=== PATIENT | male | born 1955 | race Caucasian/White ===

== ENCOUNTER 2017-08-26 07:46 | Outpatient (CLI) | payer OTHER ==
--- NOTE | 2017-08-26 10:14 | MRI ---
LUMBAR SPINE MRI NONCONTRAST: CLINICAL HISTORY: Lumbar radiculopathy. Spinal stenosis of the lumbar region with neurogenic pain. COMPARISON: 11/25/2016 FINDINGS: Vertebral body height and alignment of the lumbar spine is maintained. Disk space height is preserve d and maintained. Appropriate T2 signal. The conus medullaris terminates at the L1 level. There is congenital AP diameter narrowing of the vertebral canal on the basis of shortened pedicles. There i s prominence of epidural fat also present within the vertebral canal. L5-S1: Broad-based disk bulge is present with mild effacement of the ventral aspect of the terminal thecal sac. There is mild bilateral neural foraminal narrowing. L4-L5: Concentric disk bulge with mild to moderate central canal stenosis and mild to moderate bilat eral neural foraminal narrowing. L3-L4: There is moderate central canal stenosis. Mild bilateral neural foraminal narrowing is prese nt with a broad-based, concentric disk bulge superimposed upon osteophyte ridge. L2-L3: There is no high-grade compromise of the central canal. There is mild bilateral neural carroll inal narrowing, more pronounced on the right, with evidence of an asymmetric right disk bulge. L1-L2: No significant compromise of the central canal or neural foramina. There is multilevel moderate bilateral degenerative facet hypertrophy. IMPRESSION: Multilevel degenerative change of the lumbar spine, superimposed upon a congenitally narrowed anterio r-posterior diameter of the vertebral canal, as well as prominence of epidural fat at the mid to lowe r lumbar spine. No significant interval detrimental change from prior exam. POS: [facility]A
== END 2017-08-26 07:47 | disposition home or self-care (01) ==
LOC: TBSIIMAG 07:46
PROVIDERS: ATTEND Anesthesiology Pain Medicine
DX: M48.062 Spinal stenosis, lumbar region with neurogenic claudication (principal); M47.896 Other spondylosis, lumbar region
CPT/HCPCS: 72148

== ENCOUNTER 2017-09-08 08:33 | Outpatient (CLI) | payer OTHER ==
[2017-09-08] MEDS ORDERED: Iopamidol 370 76% 100 ML VIAL ONE (09:00)
[2017-09-08 10:13] LABS: Estimated GFR-MDRD - POC Greater than 90
--- NOTE | 2017-09-08 12:59 | CT ---
CT ANGIOGRAM ABDOMEN CT ANGIOGRAM PELVIS CT ANGIOGRAM RUNOFF TO THE FEET: HISTORY: Atherosclerosis of [place] arteries of both lower extremities. COMPARISON: None. TECHNIQUE: CT angiogram of the abdomen and pelvis with runoff to the feet was performed after the intravenous ad ministration of contrast. Three-D rendering is provided. FINDINGS: Dense mitral annular calcifications are present. No pericardial effusion. Lung bases are clear. The spleen and pancreas are unremarkable. Prior cholecystectomy. No arterial enhancing liver mass. Adrenal glands are unremarkable. No hydronephrosis. There is focal abnormal asymmetric wall thickening of the left lateral urinary bladder series 5 image 200, series 604 image 92. Further investigation with cystoscopy is warranted. There are no dilated loops of large or small bowel. Mild diverticular disease of the sigmoid colon w ithout active current inflammation. The appendix has an appendicolith at its tip. No periappendiceal inflammation. There is a fat-containing left-sided direct inguinal hernia and a right-sided direct inguinal hernia. Lumbar spine alignment is normal. Vessels: There is no aneurysmal dilatation of the abdominal aorta. Celiac trunk is patent. Superior mesenter ic artery is patent. Single bilateral patent renal arteries. Superior mesenteric artery is patent. Right Side: The common iliac artery is patent with moderate plaque. Moderate plaque of the internal and external iliac arteries. Moderate plaque of the right common femoral artery. There is extensive plaque of t he femoral artery just beyond the deep femoral artery takeoff. There is approximately 60% narrowing for a length of 2.3 cm due to a combination of soft and calcific plaque. There is very minimal flow within the right femoral artery. There is a high-grade stenosis of the right femoral artery, 60-75%, for a length of 1.1 cm. Just a small trickle of flow within the femoral artery. There is a complet e occlusion of the right femoral artery just before returning to the popliteal artery for a length of 2 cm due to calcific and soft plaque. The popliteal artery is patent. There is flow in the trifurcation to the foot which is from reconsti tution from the deep femoral artery branch. Left Side: Common iliac and internal iliac arteries are patent. There is plaque of the femoral artery and commo n femoral artery. There is extensive atherosclerotic plaque of the femoral artery. There is minimal flow within the femoral artery due to extensive narrowing. There is multifocal 50-75% stenosis of t he femoral artery. The left popliteal artery has decreased attenuation relative to the right poplite al artery. There is flow within the trifurcation to the feet. IMPRESSION: 1. Extensive atherosclerotic plaque of the aortoiliac system with multifocal, high-grade, and comple te stenoses/thromboses of the right femoral system. 2. Extensive multifocal narrowing of the left femoral artery and popliteal artery with slow flow. 3. Interventional angiogram recommended. 4. Flow to the feet bilaterally through the trifurcation predominantly due to collateralization of t he distal popliteal arteries and the deep femoral arteries bilaterally. POS: [facility]
== END 2017-09-08 08:34 | disposition home or self-care (01) ==
LOC: SCSCT 08:33
PROVIDERS: ATTEND Thoracic Surgery (Cardiothoracic Vascular Surgery)
DX: I70.213 Atherosclerosis of native arteries of extremities with intermittent claudication, bilateral legs (principal)
CPT/HCPCS: 75635; 82565

== ENCOUNTER → 2017-10-21 | Day surgery (SDC) | payer OTHER ==
[2017-10-14 14:49] VITALS: BMI 35.5
--- NOTE | 2017-10-20 16:35 | HP ---
HISTORY OF PRESENT ILLNESS: Mr. Wells is a 62-year-old gentleman who presents for evaluation of most ly left side lower back pain that centers on the SI joints that he has had for roughly 10 years. He also has some scattered referred or radicular pains in the anterior left thigh and posterior right ca lf. He has a new MRI performed at [place] that reveals profound stenosis between L3 and L5 that a ppears to be symptomatic. He has had injections with Dr. Shore over the last few months and wh ile they have helped, they are decreasing in efficacy and hopes to move forward with surgery. PAST MEDICAL HISTORY: Hypercholesterolemia and hypertension. MEDICATIONS: Metoprolol and simvastatin. PAST SURGICAL HISTORY: Hemorrhoidectomy and cholecystectomy. PHYSICAL EXAMINATION: NEUROLOGIC: The patient is alert and oriented x3. Gait is ____ pain that he feels. Mild tenderness in the left lower back centering over the SI joint. Negative straight leg raise. ASSESSMENT: Lumbar stenosis and neurogenic claudication. PLAN: Dr. Rees met with the patient, reviewed imaging and advocated for L3 through L5 decompression . He explained to the patient the risks, benefits and alternatives of the procedure. The patient ex pressed understanding and would like to move forward with surgery as discussed. I do believe the tamara garcía is mentally competent and capable of making medical decisions for himself and we will move forwa rd with surgery as planned.
[~2017-10-21] MED LIST: Bupivacaine HCl 0.5%/Epinephrine 1:200,000/PF 30 ml Vial ONE; CEFAZOLIN/Water 2 GM/20 ML SYRINGE ONE; Cephalexin 250 MG CAP PO SCH; Dexamethasone 20 MG/5 ML VIAL ONE; Fentanyl 100 MCG/2 ML VIAL ONE; Glycopyrrolate 0.2 MG/ML 5 ML SYRINGE ONE; HYDROcodone/Acetaminophen 5/325 mg Tablet ONE; Ketorolac Tromethamine 30 MG/ML VIAL ONE; Lidocaine 1% PF 5 ML VIAL ONE; Ondansetron HCl/PF 4 MG/2 ML Vial ONE; PHENYLEPHRINE-NS 100 MCG/ML 10 ML SYRINGE ONE; PROPOFOL 200 MG/20 ML VIAL ONE; Thrombin 5000 UNITS/5 ML VIAL ONE; Vecuronium 10 MG VIAL ONE
--- NOTE | 2017-10-21 10:22 | OP ---
DATE OF SERVICE: 10/21/2017 SURGEON: Roel Rees M.D. DRAW OPERATOR: Ponce Newman PA-C. INDICATION: Pain. DIAGNOSIS: Lumbar stenosis. PROCEDURE PERFORMED: L3 through L5 lumbar decompression. ANESTHESIA: General. TECHNIQUE: The patient was brought into the operating room and placed under general anesthesia. He was flipped from a supine to a prone position on the operating room table. A linear incision was karma nned spanning L3-L5. After prepping and draping and after an appropriate operative pause, the incisi on was created. The soft tissues were swept away from midline. Self-retaining retractors were place d in the wound for optimal exposure. After confirming the appropriate level with C-arm fluoroscopy, an Adson rongeur was used to remove the spinous process of L4, the inferior aspect of L3 and the supe rior aspect of L5. A high-speed cutting drill bit as well as 2, 3 and 4-mm Kerrisons were then used to perform a laminectomy and extend the laminectomy laterally in order to decompress the L3-L4, and L 4-L5 segments. In addition to removing ligament and bony encroachment by the facet joints, there was a substantial degree of epidural lipomatosis present which was also carefully removed. At the compl etion of the procedure, the L3 through L5 lumbar segments were decompressed. The wound was irrigated . Hemostasis was maintained throughout. The wound was then closed in anatomic layers and a pressure dressing was applied. There were no known procedural complications.
== END ==
LOC: SDC 06:39
PROVIDERS: ATTEND Neurological Surgery
PROC: 01NB0ZZ Release Lumbar Nerve, Open Approach (ICD-10-PCS; principal; 2017-10-21)
DX: M48.062 Spinal stenosis, lumbar region with neurogenic claudication (principal); E78.00 Pure hypercholesterolemia, unspecified; I10 Essential (primary) hypertension; Z79.899 Other long term (current) drug therapy
CPT/HCPCS: 76001; 93005; 93010; 96374; 96375; J0670; J1100; J1885; J2001; J2405; J2704; J3010

== ENCOUNTER 2018-02-21 11:43 | Inpatient (IN) | payer OTHER ==
[2018-02-21 12:19] LABS: #Basophils 0.1 thou/uL (0.0-0.2); #Eosinphils 0.3 thou/uL (0.0-0.7); #Lymphocytes 2.4 thou/uL (1.20-3.40); #Monocytes 1.2 thou/uL (0.11-0.59); #Neutrophils 5.7 thou/uL (1.40-6.50); %Basophils 0.9 % (0.0-1.0); %Eosinophils 3.1 % (0.0-10.0); %Lymphocytes 24.6 % (21.0-51.0); %Monocytes 12.4 % (0.0-10.0); %Neutrophils 58.9 % (42.0-75.0); Hemoglobin 14.6 g/dL (14.0-18.0); Mean Corpuscular Hemoglobin 30.7 pg (27.0-31.0); Mean Corpuscular Volume 90.4 fL (78.0-98.0); Mean Platelet Volume 10.7 fL (7.4-10.4); Platelet Count 249 thou/uL (130-400); RBC Distribution Width 12.1 % (11.5-14.5); Red Blood Cell (RBC) Count 4.76 mill/uL (4.70-6.10); White Blood Cell (WBC) Count 9.6 thou/uL (4.8-10.8)
[2018-02-21 12:34] LABS: ALT (SGPT) 26 U/L (8-55); AST (SGOT) 21 U/L (5-34); Albumin 4.2 g/dL (3.4-4.8); Alkaline Phosphatase 87 U/L (40-150); Anion Gap 12 mmol/L (10-20); BUN (Urea Nitrogen) 11 mg/dL (8.4-25.7); Bilirubin, Total 0.6 mg/dL (0.2-1.2); Calc. Creatinine Clearance 0 mL/min (70-130); Calcium 9.4 mg/dL (7.8-10.44); Carbon Dioxide 24 mmol/L (23-31); Chloride 105 mmol/L (98-107); Estimated GFR-MDRD 74; Globulin 3.1 g/dL (2.4-3.5); Glucose 145 mg/dL (80-115); Potassium 4.2 mmol/L (3.5-5.1); Protein, Total 7.3 g/dL (5.8-8.1); Sodium 137 mmol/L (136-145)
[2018-02-21] MEDS ORDERED: Vancomycin HCl 1.75 GM in Sodium Chloride 0.9% 500 ML IVPB SCH (13:00)
--- NOTE | 2018-02-21 13:05 | RAD ---
RIGHT FOOT THREE VIEWS: INDICATIONS: History of a bug bite to the right foot with right foot swelling. FINDINGS: There is prominent soft tissue swelling of the right small digit. No destructive osteolysis is seen to suggest the presence of osteomyelitis. No radiopaque foreign body is noted. There is a bifid fib eric and great toe sesamoid. Lisfranc alignment is preserved. IMPRESSION: Soft tissue swelling of the right foot. No acute osseous abnormality. POS: [facility]
[2018-02-21] MEDS ORDERED: Piperacillin/Tazobactam 3.375 GM VIAL ONE (14:00)
[2018-02-21] MEDS ORDERED: Adacel (T-DAP) 0.5 ML SYRINGE ONE (14:03)
[2018-02-21] MEDS ORDERED: VANC AND ABX IVPB PRN (14:33)
[2018-02-21] MEDS ORDERED: Ondansetron PF 4 MG/2 ML Vial IVP PRN (14:34)
[2018-02-21] MEDS ORDERED: Senokot S 8.6-50 MG TAB PO PRN (14:34)
[2018-02-21] MEDS ORDERED: Vancomycin HCl 1 GM in Premix Bag 1 BAG IVPB SCH (14:45)
[2018-02-21 15:10] VITALS: BMI 37.0
[2018-02-21] MEDS ORDERED: Morphine 2 MG/ML SYRINGE SLOW IVP PRN (15:34)
[2018-02-21] MEDS ORDERED: Acetaminophen 325 MG TAB PO PRN (16:57)
[2018-02-21] MEDS: Acetaminophen/Codeine 30-300mg Tablet PO PRN ×2 (17:17→21:11)
[2018-02-21] MEDS: Gabapentin 300 MG CAP PO SCH (20:03)
[2018-02-21] MEDS: Metoprolol Tartrate 100 MG TAB PO SCH (20:07)
[2018-02-21] MEDS: Simvastatin 40 MG TAB PO SCH (20:07)
[2018-02-21] MEDS: Piperacillin/Tazobactam 4.5 GM in Sodium Chloride 0.9% 100 ML IVPB SCH (21:04)
[2018-02-22] MEDS: Vancomycin HCl 1.75 GM in Sodium Chloride 0.9% 500 ML IVPB SCH ×2 (03:06→14:53)
[2018-02-22] MEDS: Acetaminophen/Codeine 30-300mg Tablet PO PRN ×5 (03:53→21:55)
[2018-02-22 05:39] LABS: #Basophils 0.1 thou/uL (0.0-0.2); #Eosinphils 0.3 thou/uL (0.0-0.7); #Lymphocytes 2.2 thou/uL (1.20-3.40); #Monocytes 1.2 thou/uL (0.11-0.59); #Neutrophils 4.3 thou/uL (1.40-6.50); %Eosinophils 4.1 % (0.0-10.0); %Lymphocytes 27.1 % (21.0-51.0); %Monocytes 14.9 % (0.0-10.0); %Neutrophils 52.9 % (42.0-75.0); Hemoglobin 13.4 g/dL (14.0-18.0); Mean Corpuscular HGB CONC 32.2 g/dL (32.0-36.0); Mean Corpuscular Hemoglobin 29.4 pg (27.0-31.0); Mean Corpuscular Volume 91.2 fL (78.0-98.0); Mean Platelet Volume 10.8 fL (7.4-10.4); Platelet Count 244 thou/uL (130-400); RBC Distribution Width 12.2 % (11.5-14.5); Red Blood Cell (RBC) Count 4.58 mill/uL (4.70-6.10); White Blood Cell (WBC) Count 8.2 thou/uL (4.8-10.8)
[2018-02-22] MEDS: Piperacillin/Tazobactam 4.5 GM in Sodium Chloride 0.9% 100 ML IVPB SCH ×2 (05:50→13:03)
[2018-02-22 06:02] LABS: Anion Gap 14 mmol/L (10-20); BUN (Urea Nitrogen) 15 mg/dL (8.4-25.7); Calc. Creatinine Clearance 119 mL/min (70-130); Calcium 8.9 mg/dL (7.8-10.44); Carbon Dioxide 23 mmol/L (23-31); Chloride 108 mmol/L (98-107); Estimated GFR-MDRD 71; Glucose 110 mg/dL (80-115); Potassium 4.5 mmol/L (3.5-5.1); Sodium 140 mmol/L (136-145)
--- NOTE | 2018-02-22 07:50 | HP ---
PRIMARY CARE PROVIDER: Roel Carpenter MD CHIEF COMPLAINT: Right foot swelling. HISTORY OF PRESENT ILLNESS: Mr. Wells is a pleasant 62-year-old gentleman who was seen at [facility] on February 21, 2018. Four days ago, he woke up around 3:30 a.m. to let the dogs out. Around 5 a.m., he noticed that he had pain in his right foot and woke his up. He thinks he has been bitten by an insect. That time, he was noted to have a "blood blister" over his right foot. He popped it with some blood and pus coming out. Since then, he has had progressively worsening redness and pain of the right foot. He describes the pain as dull, nonradiating, 6/10 at its worst, worse with walking. He reports feeling warm. He reports nausea. He was started on Bactrim 2 days ago at an urgent care clinic. He reports that the Bactrim did not help. He came to the emergency room today because of ongoing redness and pain on his right foot. REVIEW OF SYSTEMS: All other systems reviewed and found to be negative. PAST MEDICAL HISTORY: 1. 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 2. Dyslipidemia. 3. Hypertension. 4. Peripheral vascular disease. PAST SURGICAL HISTORY: 1. Hemorrhoidectomy. 2. Back surgery. 3. Cholecystectomy. SOCIAL HISTORY: The patient is an ex-smoker. He reports alcohol use occasionally. He denies recreational drug use. FAMILY HISTORY: No family history of coronary artery disease. ALLERGIES: NO KNOWN DRUG ALLERGIES. CURRENT MEDICATIONS: 1. Metoprolol tartrate 100 mg daily. 2. Simvastatin 40 mg daily. 3. Colestipol 1 g daily. 4. Gabapentin 300 mg 2 times a day. PHYSICAL EXAMINATION: GENERAL: Mr. Wells is awake and alert, not in acute distress. He is obese. VITAL SIGNS: He is afebrile. Blood pressure 122/79, pulse 71, respiratory rate 16, and oxygen saturation 97% on room air. EYES: No scleral icterus. No conjunctival pallor. ENT: Moist mucosal membranes. No oropharyngeal erythema or exudates. NECK: Supple, nontender. Trachea is midline. RESPIRATORY: Accessory muscles of breathing are not active. Chest wall movements are symmetric bilaterally. Lungs are clear to auscultation without wheeze, rhonchi, or crepitations. CARDIOVASCULAR: S1 and S2 are heard, regular. Peripheral pulses palpable. No carotid bruit. No pericardial rub. ABDOMEN: Soft, nontender. Bowel sounds heard. NEUROLOGIC: Cranial nerves 2 through 12 intact. Deep tendon reflexes 2+. MUSCULOSKELETAL: Power is 5/5 in all 4 extremities. SKIN: The dorsum of the right foot is erythematous, mildly tender. No crepitus. There is also a punctate opening. LYMPHATICS: No lymphadenopathy. PSYCHIATRIC: Normal mood, normal affect. The patient is oriented to person, place, and time. LABS AND INVESTIGATIONS: Mr. Wells's labs and investigations are reviewed. He had x-rays of the right foot, which shows soft tissue swelling and no acute osseous abnormality. He has unremarkable CBC, unremarkable comprehensive metabolic profile, and elevated C-reactive protein of 2.52. ASSESSMENT AND PLAN: Mr. Wells is a pleasant 62-year-old gentleman who was seen at [facility] on February 21, 2018. His problem list includes: 1. Cellulitis: Mr. Wells is presenting with cellulitis of the right foot. He has failed outpatient antibiotic therapy and will be admitted to the hospital for further management with intravenous antibiotics. He has already received intravenous vancomycin and Zosyn, which I will continue. Infectious Disease Service is also being consulted for opinion and help with management. 2. Hypertension: We will resume the patient's home medications once clarified, monitor vital signs and titrate antihypertensives as needed. 3. Dyslipidemia: We will continue statin. 4. Peripheral vascular disease, appears to be stable. Many thanks for allowing me to participate in your patient's care. Please feel free to contact me with any questions or concerns. LEVEL OF RISK: Moderate. LEVEL OF COMPLEXITY: Moderate. Job ID: [id number]
[2018-02-22] MEDS: Metoprolol Tartrate 100 MG TAB PO SCH ×2 (08:09→20:30)
[2018-02-22] MEDS: Gabapentin 300 MG CAP PO SCH ×2 (08:10→20:30)
[2018-02-22] MEDS: Enoxaparin Sodium 40 MG/0.4 ML SYRINGE SC SCH (08:10)
[2018-02-22] MEDS: Cefepime 1 GM in Sodium Chloride 0.9% 100 ML IVPB SCH ×2 (14:18→21:52)
--- NOTE | 2018-02-22 14:21 | PDOC.PN ---
- Subjective Encounter Start Date: 02/22/18 Encounter Start Time: 14:20 Pt seen for followup re: right foot cellulitis. Denies chest pain, shortness of breath, fevers or chills. - Objective MAR Reviewed: Yes Vital Signs & Weight: Vital Signs (12 hours) Temp Pulse Resp BP Pulse Ox 02/22/18 11:00 98.0 F 77 18 99/62 97 02/22/18 08:00 97 02/22/18 07:58 98.0 F 77 18 107/72 97 02/22/18 03:54 98.1 F 80 18 107/70 94 L Weight Weight 258 lb 8 oz I&O: 02/21/18 02/22/18 02/23/18 06:59 06:59 06:59 Intake Total 1790 240 Balance 1790 240 Result Diagrams: 02/22/18 04:20 02/22/18 04:20 Additional Labs: Labs reviewed by me Phys Exam - Physical Examination Obese HEENT: moist MMs, sclera anicteric, oral pharynx no lesions, 2+ tonsils Neck: no nodes, no JVD, supple, full ROM Respiratory: no wheezing, no rales, no rhonchi, clear to auscultation bilateral Cardiovascular: RRR, no rub S1, S2 Gastrointestinal: soft, non-tender, no distention, positive bowel sounds Neurological: moves all 4 limbs Psychiatric: normal affect, A&O x 3 Deviation from normal: right foot cellulitis Dx/Plan (1) Cellulitis of right foot Code(s): L03.115 - CELLULITIS OF RIGHT LOWER LIMB Status: Acute Comment: continue IV cefepime and vancomycin (2) HTN (hypertension) Code(s): I10 - ESSENTIAL (PRIMARY) HYPERTENSION Status: Chronic Comment: controlled (3) Dyslipidemia Code(s): E78.5 - HYPERLIPIDEMIA, UNSPECIFIED Status: Chronic Comment: continue statin (4) Peripheral neuropathy Code(s): G62.9 - POLYNEUROPATHY, UNSPECIFIED Status: Chronic Comment: continue gabapentin - Plan * . Review of Systems - Review of Systems Constitutional: negative: fever, chills, sweats, weakness, malaise Respiratory: negative: Cough, Shortness of Breath, SOB with Excertion, Pleuritic Pain, Wheezing Cardiovascular: negative: chest pain, palpitations, orthopnea, paroxysmal nocturnal dyspnea, edema, light headedness Gastrointestinal: negative: Nausea, Vomiting, Abdominal Pain, Diarrhea, Constipation, Melena, Hematochezia Musculoskeletal: Foot Pain. negative: Neck Pain, Shoulder Pain, Arm Pain, Back Pain, Hand Pain, Leg Pain Skin: Rash. negative: Lesions, Cole, Bruising - Medications/Allergies Allergies/Adverse Reactions: Allergies Allergy/AdvReac Type Severity Reaction Status Date / Time No Known Allergies Allergy Verified 10/14/17 14:49 Medications: Current Medications Acetaminophen (Tylenol) 650 mg PO Q6H PRN PRN Reason: Pain Last Admin: 02/22/18 10:20 Dose: 650 mg Acetaminophen/Codeine Phosphate (Tylenol #3) 1 tab PO Q4H PRN PRN Reason: Moderate Pain (4-6) Last Admin: 02/22/18 13:03 Dose: 1 tab Enoxaparin Sodium (Lovenox) 40 mg SC 0900 [facility] Last Admin: 02/22/18 08:10 Dose: 40 mg Gabapentin (Neurontin) 300 mg PO BID [facility] Last Admin: 02/22/18 08:10 Dose: 300 mg Vancomycin HCl 1.75 gm/ Sodium (Chloride) 500 mls @ 250 mls/hr IVPB 0300,1500 [facility] Last Admin: 02/22/18 03:06 Dose: 500 mls Cefepime HCl 1 gm/ Sodium (Chloride) 100 mls @ 200 mls/hr IVPB Q8HR [facility] Metoprolol Tartrate (Lopressor) 100 mg PO BID [facility] Last Admin: 02/22/18 08:09 Dose: 100 mg Miscellaneous Medication (Pharmacy To Dose) 1 each IVPB DAILYPRN PRN PRN Reason: LABS Ondansetron HCl (Zofran) 4 mg IVP Q6H PRN PRN Reason: Nausea/Vomiting Senna/Docusate Sodium (Senokot S) 2 tab PO BID PRN PRN Reason: Constipation Simvastatin (Zocor) 40 mg PO HS [facility] Last Admin: 02/21/18 20:07 Dose: Not Given
--- NOTE | 2018-02-22 16:44 | CON ---
DATE OF CONSULTATION: 02/22/2018 REASON FOR CONSULTATION: Right lateral forefoot inflammatory process. HISTORY OF PRESENT ILLNESS: A 62-year-old, history of peripheral neuropathy, dyslipidemia, hypertension, and PVD, who developed inflammatory process in the dorsal aspect of the right forefoot 4 days before admission. He is not sure he saw an insect at the site, but he developed this immediately after returning from a walk outside his house in the yard. There was what he describes as a "blood blister. " He did use an instrument to pop this blister and some pus and blood coming out. Since then, inflammatory process has worsened, despite oral Bactrim. PAST MEDICAL HISTORY: Neuropathy, dyslipidemia, hypertension, and PVD. PAST SURGICAL HISTORY: Hemorrhoidectomy, back surgery with laminectomy, and cholecystectomy. SOCIAL HISTORY: Former smoker. [place] other drug use. . FAMILY HISTORY: Noncontributory. ALLERGIES: NONE. CURRENT MEDICATIONS: 1. Tylenol. 2. Lovenox. 3. Neurontin. 4. Lopressor. 5. Zosyn. 6. Senokot. 7. Vancomycin. PHYSICAL EXAMINATION: VITAL SIGNS: T-max 98, blood pressure 107/72, pulse 77, respirations 18, and O2 saturation 97%. SKIN: Shows an area of erythema in the right distal forefoot dorsal aspect extending towards the midfoot and hindfoot regions at the intersection between the fifth toe and the metatarsal. There is what appears to be a pustule with slight bulging of the skin at the site and some yellow discoloration under it. LYMPHATICS: No lymphadenopathy. HEENT: Ocular movements conjugate. Oral cavity is normal. NECK: Supple. No jugular venous distention. LUNGS: Symmetric. Clear breath sounds. HEART: S1 and S2. Regular rate. No S3 or S4. ABDOMEN: Soft, not distended or tender. Pulses are excellent in the dorsalis pedis. NEURO: Nonfocal including cognitive function. LABORATORY DATA: White cell count 9.6 and 8.2, hemoglobin 13.4, and platelets 244 with a normal differential. Chemistry with creatinine 1.02. Liver profile normal. Glucose was 145 and 110. CRP 2.52. IMAGING STUDIES: Include a foot x-ray without any osteolysis. ASSESSMENT: Possible insect bite or just some other type of penetrating wound while walking in his yard with now inflammatory changes suggestive of an abscess associated with cellulitis. DISCUSSION: Most likely scenario is abscess with cellulitis secondary to methicillin-resistant Staphylococcus aureus. Gram-negative rods are possible, although less likely. We will switch him to cefepime. Continue vancomycin. Optimize trough level to 15 mcg and consult either pricing specialist or Surgery for I and D of the site. Continue monitoring blood cultures to make sure he is not bacteremic. Possibility of dissemination to other sites is considered and we will have to continue monitoring for this development in the future. If the abscess is drained successfully, may consider doing an MRI to make sure that there is no deeper involvement depending on surgical findings. Job ID: [id number] MTDD
[2018-02-22] MEDS: Simvastatin 40 MG TAB PO SCH (20:30)
[2018-02-23 02:09] LABS: #Basophils 0.1 thou/uL (0.0-0.2); #Eosinphils 0.4 thou/uL (0.0-0.7); #Lymphocytes 1.9 thou/uL (1.20-3.40); #Monocytes 1.2 thou/uL (0.11-0.59); #Neutrophils 5.3 thou/uL (1.40-6.50); %Basophils 1.2 % (0.0-1.0); %Eosinophils 4.8 % (0.0-10.0); %Lymphocytes 21.1 % (21.0-51.0); %Monocytes 13.1 % (0.0-10.0); %Neutrophils 59.8 % (42.0-75.0); Hemoglobin 14.1 g/dL (14.0-18.0); Mean Corpuscular HGB CONC 33.3 g/dL (32.0-36.0); Mean Corpuscular Hemoglobin 30.3 pg (27.0-31.0); Mean Corpuscular Volume 90.9 fL (78.0-98.0); Mean Platelet Volume 10.1 fL (7.4-10.4); Platelet Count 266 thou/uL (130-400); RBC Distribution Width 12.1 % (11.5-14.5); Red Blood Cell (RBC) Count 4.64 mill/uL (4.70-6.10); White Blood Cell (WBC) Count 8.9 thou/uL (4.8-10.8)
[2018-02-23 02:30] LABS: Vancomycin, Trough 8.4 ug/mL
[2018-02-23 02:50] LABS: Anion Gap 13 mmol/L (10-20); BUN (Urea Nitrogen) 12 mg/dL (8.4-25.7); Calc. Creatinine Clearance 141 mL/min (70-130); Calcium 9.4 mg/dL (7.8-10.44); Carbon Dioxide 22 mmol/L (23-31); Chloride 108 mmol/L (98-107); Estimated GFR-MDRD 86; Glucose 111 mg/dL (80-115); Potassium 4.5 mmol/L (3.5-5.1); Sodium 138 mmol/L (136-145)
[2018-02-23] MEDS: Vancomycin HCl 1.5 GM in Sodium Chloride 0.9% 250 ML 300 ML IVPB SCH ×3 (03:06→20:06)
[2018-02-23] MEDS: Cefepime 1 GM in Sodium Chloride 0.9% 100 ML IVPB SCH ×3 (05:53→23:17)
[2018-02-23] MEDS: Acetaminophen/Codeine 30-300mg Tablet PO PRN (05:58)
[2018-02-23] MEDS: Enoxaparin Sodium 40 MG/0.4 ML SYRINGE SC SCH (07:56)
[2018-02-23] MEDS: Metoprolol Tartrate 100 MG TAB PO SCH ×2 (07:56→22:37)
[2018-02-23] MEDS: Gabapentin 300 MG CAP PO SCH ×2 (07:56→22:37)
--- NOTE | 2018-02-23 11:13 | PDOC.PN ---
- Subjective Encounter Start Date: 02/23/18 Encounter Start Time: 08:20 Pt seen for followup re: right foot cellulitis. Denies chest pain, shortness of breath, fevers or chills. - Objective MAR Reviewed: Yes Vital Signs & Weight: Vital Signs (12 hours) Temp Pulse Resp BP BP Pulse Ox 02/23/18 08:00 98 02/23/18 07:37 97.7 F 74 18 126/81 97 02/23/18 05:45 97.5 F L 68 18 102/53 L 98 02/22/18 23:30 98.5 F 81 18 112/65 97 Weight Weight 258 lb 8 oz I&O: 02/22/18 02/23/18 02/24/18 06:59 06:59 06:59 Intake Total 1790 1400 Balance 1790 1400 Result Diagrams: 02/23/18 02:03 02/23/18 02:03 Additional Labs: Labs reviewed by me Phys Exam - Physical Examination Obesity HEENT: moist MMs, sclera anicteric, oral pharynx no lesions, 2+ tonsils Neck: no nodes, no JVD, supple, full ROM Respiratory: clear to auscultation bilateral Cardiovascular: RRR, no rub S1, S2 Gastrointestinal: soft, non-tender, no distention, positive bowel sounds Neurological: moves all 4 limbs Psychiatric: normal affect, A&O x 3 Deviation from normal: right foot cellulitis Dx/Plan (1) Cellulitis of right foot Code(s): L03.115 - CELLULITIS OF RIGHT LOWER LIMB Status: Acute Comment: continue IV cefepime and vancomycin, pt awaiting MRI foot (2) HTN (hypertension) Code(s): I10 - ESSENTIAL (PRIMARY) HYPERTENSION Status: Chronic Comment: controlled (3) Dyslipidemia Code(s): E78.5 - HYPERLIPIDEMIA, UNSPECIFIED Status: Chronic Comment: on statin (4) Peripheral neuropathy Code(s): G62.9 - POLYNEUROPATHY, UNSPECIFIED Status: Chronic Comment: on gabapentin - Plan * . Review of Systems - Review of Systems Constitutional: negative: fever, chills, sweats, weakness, malaise Respiratory: negative: Cough, Shortness of Breath, SOB with Excertion, Pleuritic Pain, Wheezing Cardiovascular: negative: chest pain, palpitations, orthopnea, paroxysmal nocturnal dyspnea, edema, light headedness Gastrointestinal: negative: Nausea, Vomiting, Abdominal Pain, Diarrhea, Constipation, Melena, Hematochezia Genitourinary: negative: Dysuria, Frequency, Incontinence, Hematuria, Retention Musculoskeletal: Foot Pain. negative: Neck Pain, Shoulder Pain, Arm Pain, Back Pain, Hand Pain, Leg Pain Skin: Rash. negative: Lesions, Cole, Bruising - Medications/Allergies Allergies/Adverse Reactions: Allergies Allergy/AdvReac Type Severity Reaction Status Date / Time No Known Allergies Allergy Verified 10/14/17 14:49 Medications: Current Medications Acetaminophen (Tylenol) 650 mg PO Q6H PRN PRN Reason: Pain Last Admin: 02/22/18 10:20 Dose: 650 mg Acetaminophen/Codeine Phosphate (Tylenol #3) 1 tab PO Q4H PRN PRN Reason: Moderate Pain (4-6) Last Admin: 02/23/18 05:58 Dose: 1 tab Enoxaparin Sodium (Lovenox) 40 mg SC 0900 [facility] Last Admin: 02/23/18 07:56 Dose: 40 mg Gabapentin (Neurontin) 300 mg PO BID [facility] Last Admin: 02/23/18 07:56 Dose: 300 mg Cefepime HCl 1 gm/ Sodium (Chloride) 100 mls @ 200 mls/hr IVPB Q8HR [facility] Last Admin: 02/23/18 05:53 Dose: 100 mls Vancomycin HCl 1.5 gm/ Sodium (Chloride) 300 mls @ 150 mls/hr IVPB 0400,1200, 2000 [facility] Last Admin: 02/23/18 03:06 Dose: 300 mls Metoprolol Tartrate (Lopressor) 100 mg PO BID [facility] Last Admin: 02/23/18 07:56 Dose: 100 mg Miscellaneous Medication (Pharmacy To Dose) 1 each IVPB DAILYPRN PRN PRN Reason: LABS Ondansetron HCl (Zofran) 4 mg IVP Q6H PRN PRN Reason: Nausea/Vomiting Senna/Docusate Sodium (Senokot S) 2 tab PO BID PRN PRN Reason: Constipation Simvastatin (Zocor) 40 mg PO HS [facility] Last Admin: 02/22/18 20:30 Dose: 40 mg Sodium Chloride (Flush - Normal Saline) 10 ml IVF PRN PRN PRN Reason: Saline Flush
--- NOTE | 2018-02-23 13:02 | MRI ---
MRI RIGHT FOREFOOT WITH AND WITHOUT IV CONTRAST: DATE: 02/23/2018. PROVIDED CLINICAL HISTORY: Abscess. FINDINGS: There is a circumscribed fluid collection present at the dorsal aspect of the small digit MTP joint m easuring approximately 2 cm in AP dimension, 1.5 cm in transverse dimension, and 1.2 cm in dorsal karma ntar dimension. This demonstrates rim enhancement. There is no MTP joint effusion evident. Regiona l marrow signal appears unremarkable. Alignment appears anatomic. There is no significant regional tenosynovial fluid evident. Regional m uscular signal appears unremarkable. The dorsal extensor and plantar flexor tendons demonstrate an intact MR appearance. There is fluid signal intensity within the subcutaneous adipose layer of the dorsum of the foot with associated enhancement. IMPRESSION: Dorsal forefoot and mid foot cellulitis with associated soft tissue abscess of the dorsal aspect of t he 5th metatarsophalangeal joint. POS: [facility]
[2018-02-23] MEDS ORDERED: PROPOFOL 200 MG/20 ML VIAL ONE (16:29)
[2018-02-23] MEDS ORDERED: Lidocaine 1% PF 5 ML VIAL ONE (16:29)
[2018-02-23] MEDS ORDERED: Ondansetron PF 4 MG/2 ML Vial ONE (16:29)
[2018-02-23] MEDS ORDERED: Dexamethasone 20 MG/5 ML VIAL ONE (16:29)
[2018-02-23] MEDS ORDERED: Ketorolac Tromethamine 30 MG/ML VIAL ONE (16:29)
[2018-02-23] MEDS ORDERED: Neomycin-Polymyxin 1 ML AMP ONE (19:07)
[2018-02-23] MEDS ORDERED: Bupivacaine PF 0.5% 30 ML VIAL ONE (19:12)
[2018-02-23] MEDS ORDERED: Fentanyl 100 MCG/2 ML VIAL ONE (19:13)
[2018-02-23] MEDS ORDERED: Midazolam HCl 2 mg/2 ml Vial ONE (19:14)
[2018-02-23] MEDS ORDERED: Ondansetron HCl/PF 4 MG/2 ML Vial IVP PRN (20:15)
[2018-02-23] MEDS ORDERED: HYDROmorphone 2 MG/ML VIAL SLOW IVP PRN (20:15)
[2018-02-23] MEDS ORDERED: Promethazine HCl 25 MG/ML VIAL SLOW IVP PRN (20:15)
[2018-02-23] MEDS ORDERED: Promethazine HCl 25 MG/ML VIAL IM PRN (20:15)
[2018-02-23] MEDS ORDERED: PACU-Morphine 4MG/ML VIAL SLOW IVP PRN (20:15)
[2018-02-23] MEDS: Simvastatin 40 MG TAB PO SCH (22:37)
[2018-02-24 03:09] LABS: #Lymphocytes 0.9 thou/uL (1.20-3.40); #Monocytes 0.3 thou/uL (0.11-0.59); #Neutrophils 6.5 thou/uL (1.40-6.50); %Basophils 0.1 % (0.0-1.0); %Eosinophils 0.3 % (0.0-10.0); %Monocytes 3.5 % (0.0-10.0); Hemoglobin 14.4 g/dL (14.0-18.0); Mean Corpuscular HGB CONC 34.2 g/dL (32.0-36.0); Mean Corpuscular Hemoglobin 30.9 pg (27.0-31.0); Mean Corpuscular Volume 90.5 fL (78.0-98.0); Mean Platelet Volume 10.4 fL (7.4-10.4); Platelet Count 267 thou/uL (130-400); RBC Distribution Width 11.8 % (11.5-14.5); Red Blood Cell (RBC) Count 4.64 mill/uL (4.70-6.10); White Blood Cell (WBC) Count 7.7 thou/uL (4.8-10.8)
--- NOTE | 2018-02-24 03:15 | OP ---
DATE OF PROCEDURE: 02/23/2018 PREOPERATIVE DIAGNOSIS: Abscess of right foot, fifth metatarsophalangeal joint. POSTOPERATIVE DIAGNOSIS: Abscess of right foot, fifth metatarsophalangeal joint. PROCEDURE PERFORMED: Incision and drainage of right foot abscess, packed open. PATHOLOGY: Cultures taken; Gram stain, aerobic and anaerobic cultures. ANESTHESIA: Local with monitored anesthetic care. HEMOSTASIS: None. ESTIMATED BLOOD LOSS: 20 mL. MATERIALS: A 0.25-inch iodoform packing guaze. INJECTABLES: 10 mL of 0.5% Marcaine plain preoperatively. COMPLICATIONS: None. SUMMARY OF PROCEDURE: The patient was brought to the operative suite, placed supine on the operating table. Time-out was performed, identifying the correct patient, procedure, and operative site. Foot was prepped and draped in an aseptic manner. Attention was directed to the fifth metatarsophalangeal joint, where a 4 cm linear longitudinal incision was made over the fifth metatarsophalangeal joint. A small collection of purulent drainage was located at this position. The aerobic and anaerobic cultures were taken. Wound was explored. There was a small tunnel to the proximal aspect. This was opened up with another 3 cm incision. Some necrotic fat and liquefactive tissue were excised. The wound was then irrigated with 3 L of normal saline mixed with 3 units of . Wound was packed open with 0.25-inch iodoform. The patient's capillary refill time was immediate to the distal aspect of the all toes including the fifth digit. At the end of the procedure, dressings applied including 4x4s, gauze, roll gauze, and Edward bandage. The patient was transported out of the operative suite with vital signs stable and neurovascular status intact. He will be transported back to his room after a short period of monitoring, and I will follow up with him tomorrow in-house. Job ID: [id number]
[2018-02-24 03:25] LABS: Vancomycin, Trough 20.8 ug/mL
[2018-02-24 03:34] LABS: Anion Gap 14 mmol/L (10-20); BUN (Urea Nitrogen) 14 mg/dL (8.4-25.7); Calc. Creatinine Clearance 127 mL/min (70-130); Calcium 9.7 mg/dL (7.8-10.44); Carbon Dioxide 23 mmol/L (23-31); Chloride 104 mmol/L (98-107); Estimated GFR-MDRD 76; Glucose 230 mg/dL (80-115); Potassium 4.4 mmol/L (3.5-5.1); Sodium 137 mmol/L (136-145)
[2018-02-24] MEDS: Vancomycin HCl 1.5 GM in Sodium Chloride 0.9% 250 ML 300 ML IVPB SCH ×2 (04:22→15:59)
[2018-02-24] MEDS: Cefepime 1 GM in Sodium Chloride 0.9% 100 ML IVPB SCH ×3 (07:14→21:58)
[2018-02-24] MEDS: Gabapentin 300 MG CAP PO SCH ×2 (08:57→20:36)
[2018-02-24] MEDS: Acetaminophen/Codeine 30-300mg Tablet PO PRN ×3 (08:58→22:42)
[2018-02-24] MEDS: Metoprolol Tartrate 100 MG TAB PO SCH ×2 (08:58→20:36)
[2018-02-24] MEDS: Enoxaparin Sodium 40 MG/0.4 ML SYRINGE SC SCH (08:58)
--- NOTE | 2018-02-24 12:20 | PDOC.PN ---
- Subjective Encounter Start Date: 02/24/18 Encounter Start Time: 09:00 Pt seen for followup re; right lower limb cellilitis and abscess. Feels better. - Objective MAR Reviewed: Yes Vital Signs & Weight: Vital Signs (12 hours) Temp Pulse Resp BP Pulse Ox 02/24/18 08:08 97.7 F 74 18 101/64 95 02/24/18 08:00 95 02/24/18 04:00 98.2 F 78 18 114/65 97 02/24/18 00:00 97.7 F 81 18 128/80 94 L Weight Weight 258 lb 8 oz I&O: 02/23/18 02/24/18 02/25/18 06:59 06:59 06:59 Intake Total 1400 240 Balance 1400 240 Result Diagrams: 02/24/18 02:43 02/24/18 02:43 Additional Labs: Labs reviewed by me Phys Exam - Physical Examination Obese HEENT: moist MMs Neck: supple Respiratory: clear to auscultation bilateral Cardiovascular: RRR Gastrointestinal: soft Neurological: moves all 4 limbs Psychiatric: normal affect Deviation from normal: right foot dressing Dx/Plan (1) Cellulitis of right foot Code(s): L03.115 - CELLULITIS OF RIGHT LOWER LIMB Status: Acute Comment: continue IV cefepime and vancomycin (2) Foot abscess, right Code(s): L02.611 - CUTANEOUS ABSCESS OF RIGHT FOOT Status: Acute Comment: s/ p I&D by podiatry. Will await culture result. (3) HTN (hypertension) Code(s): I10 - ESSENTIAL (PRIMARY) HYPERTENSION Status: Chronic Comment: controlled (4) Dyslipidemia Code(s): E78.5 - HYPERLIPIDEMIA, UNSPECIFIED Status: Chronic Comment: will continue statin (5) Peripheral neuropathy Code(s): G62.9 - POLYNEUROPATHY, UNSPECIFIED Status: Chronic Comment: will continue gabapentin - Plan * . Review of Systems - Review of Systems Respiratory: negative: Cough, Shortness of Breath, SOB with Excertion, Pleuritic Pain, Wheezing Cardiovascular: negative: chest pain, palpitations, orthopnea, paroxysmal nocturnal dyspnea, edema, light headedness Musculoskeletal: Foot Pain Skin: Rash - Medications/Allergies Allergies/Adverse Reactions: Allergies Allergy/AdvReac Type Severity Reaction Status Date / Time No Known Allergies Allergy Verified 10/14/17 14:49 Medications: Current Medications Acetaminophen (Tylenol) 650 mg PO Q6H PRN PRN Reason: Pain Last Admin: 02/22/18 10:20 Dose: 650 mg Acetaminophen/Codeine Phosphate (Tylenol #3) 1 tab PO Q4H PRN PRN Reason: Moderate Pain (4-6) Last Admin: 02/24/18 12:54 Dose: 1 tab Enoxaparin Sodium (Lovenox) 40 mg SC 0900 [facility] Last Admin: 02/24/18 08:58 Dose: Not Given Gabapentin (Neurontin) 300 mg PO BID [facility] Last Admin: 02/24/18 08:57 Dose: 300 mg Cefepime HCl 1 gm/ Sodium (Chloride) 100 mls @ 200 mls/hr IVPB Q8HR [facility] Last Admin: 02/24/18 14:36 Dose: 100 mls Vancomycin HCl 1.5 gm/ Sodium (Chloride) 300 mls @ 150 mls/hr IVPB 0400,1600 [facility] Metoprolol Tartrate (Lopressor) 100 mg PO BID [facility] Last Admin: 02/24/18 08:58 Dose: 100 mg Miscellaneous Medication (Pharmacy To Dose) 1 each IVPB DAILYPRN PRN PRN Reason: LABS Ondansetron HCl (Zofran) 4 mg IVP Q6H PRN PRN Reason: Nausea/Vomiting Senna/Docusate Sodium (Senokot S) 2 tab PO BID PRN PRN Reason: Constipation Simvastatin (Zocor) 40 mg PO HS [facility] Last Admin: 02/23/18 22:37 Dose: 40 mg Sodium Chloride (Flush - Normal Saline) 10 ml IVF PRN PRN PRN Reason: Saline Flush
[2018-02-24] MEDS: Simvastatin 40 MG TAB PO SCH (20:36)
[2018-02-25] MEDS: Vancomycin HCl 1.5 GM in Sodium Chloride 0.9% 250 ML 300 ML IVPB SCH (03:13)
[2018-02-25] MEDS: Cefepime 1 GM in Sodium Chloride 0.9% 100 ML IVPB SCH ×3 (05:43→22:08)
[2018-02-25] MEDS: Acetaminophen/Codeine 30-300mg Tablet PO PRN ×2 (08:25→22:51)
[2018-02-25] MEDS: Metoprolol Tartrate 100 MG TAB PO SCH ×2 (08:25→20:30)
[2018-02-25] MEDS: Gabapentin 300 MG CAP PO SCH ×2 (08:25→20:30)
[2018-02-25] MEDS: Enoxaparin Sodium 40 MG/0.4 ML SYRINGE SC SCH ×2 (08:26→08:28)
--- NOTE | 2018-02-25 12:00 | PDOC.PN ---
- Subjective Encounter Start Date: 02/25/18 Encounter Start Time: 09:00 Pt seen for followup re: right foot cellulitis. No new complaints. - Objective Vital Signs & Weight: Vital Signs (12 hours) Temp Pulse Resp BP Pulse Ox 02/25/18 11:56 97.8 F 78 20 119/68 92 L 02/25/18 08:34 97.8 F 73 20 131/75 99 02/25/18 08:00 99 Weight Weight 258 lb 8 oz I&O: 02/24/18 02/25/18 02/26/18 06:59 06:59 06:59 Intake Total 2720 240 Balance 2720 240 Result Diagrams: 02/24/18 02:43 02/24/18 02:43 Phys Exam - Physical Examination Constitutional: NAD HEENT: moist MMs Neck: supple Respiratory: clear to auscultation bilateral Cardiovascular: RRR Gastrointestinal: soft Neurological: moves all 4 limbs Psychiatric: normal affect Deviation from normal: right foot in dressing Dx/Plan (1) Cellulitis of right foot Code(s): L03.115 - CELLULITIS OF RIGHT LOWER LIMB Status: Acute Comment: will continue IV cefepime and vancomycin, await cultures (abscess fluid growing S. aureus, sensitivities not yet available, blood cultures negative so far) (2) Foot abscess, right Code(s): L02.611 - CUTANEOUS ABSCESS OF RIGHT FOOT Status: Acute Comment: s/ p I&D by podiatry. Will continue IV cefepime and vancomycin, await cultures ( abscess fluid growing S. aureus, sensitivities not yet available, blood cultures negative so far) (3) HTN (hypertension) Code(s): I10 - ESSENTIAL (PRIMARY) HYPERTENSION Status: Chronic Comment: controlled (4) Dyslipidemia Code(s): E78.5 - HYPERLIPIDEMIA, UNSPECIFIED Status: Chronic Comment: on statin (5) Peripheral neuropathy Code(s): G62.9 - POLYNEUROPATHY, UNSPECIFIED Status: Chronic Comment: on gabapentin - Plan * . Review of Systems - Review of Systems Cardiovascular: negative: chest pain, palpitations, orthopnea, paroxysmal nocturnal dyspnea, edema, light headedness Skin: Rash. negative: Lesions, Cole, Bruising - Medications/Allergies Allergies/Adverse Reactions: Allergies Allergy/AdvReac Type Severity Reaction Status Date / Time No Known Allergies Allergy Verified 10/14/17 14:49 Medications: Current Medications Acetaminophen (Tylenol) 650 mg PO Q6H PRN PRN Reason: Pain Last Admin: 02/22/18 10:20 Dose: 650 mg Acetaminophen/Codeine Phosphate (Tylenol #3) 1 tab PO Q4H PRN PRN Reason: Moderate Pain (4-6) Last Admin: 02/25/18 08:25 Dose: 1 tab Enoxaparin Sodium (Lovenox) 40 mg SC 0900 [facility] Last Admin: 02/25/18 08:28 Dose: Not Given Gabapentin (Neurontin) 300 mg PO BID [facility] Last Admin: 02/25/18 08:25 Dose: 300 mg Cefepime HCl 1 gm/ Sodium (Chloride) 100 mls @ 200 mls/hr IVPB Q8HR [facility] Last Admin: 02/25/18 05:43 Dose: 100 mls Vancomycin HCl 1.5 gm/ Sodium (Chloride) 300 mls @ 150 mls/hr IVPB 0400,1600 [facility] Last Admin: 02/25/18 03:13 Dose: 300 mls Metoprolol Tartrate (Lopressor) 100 mg PO BID [facility] Last Admin: 02/25/18 08:25 Dose: 100 mg Miscellaneous Medication (Pharmacy To Dose) 1 each IVPB DAILYPRN PRN PRN Reason: LABS Ondansetron HCl (Zofran) 4 mg IVP Q6H PRN PRN Reason: Nausea/Vomiting Senna/Docusate Sodium (Senokot S) 2 tab PO BID PRN PRN Reason: Constipation Simvastatin (Zocor) 40 mg PO HS [facility] Last Admin: 02/24/18 20:36 Dose: 40 mg Sodium Chloride (Flush - Normal Saline) 10 ml IVF PRN PRN PRN Reason: Saline Flush
--- NOTE | 2018-02-25 14:12 | PRG ---
DATE OF SERVICE: 02/25/2018 SUBJECTIVE: The patient had incision and drainage. Dr. Rashid did not find any deep penetration. His MRI did not show any osteomyelitis. He is feeling well. There are no respiratory symptoms. No abdominal pain. OBJECTIVE: VITAL SIGNS: Normal. He is afebrile. LUNGS: Clear. HEART: S1 and S2. Regular rate. ABDOMEN: Soft, not distended. EXTREMITIES: Right foot dressing not removed. LABORATORY DATA: Microbiology with Staph aureus with pending susceptibilities at this point in time. ASSESSMENT: Right foot staphylococcal abscess. No evidence of osteomyelitis. PLAN: Plan is to discharge on oral antimicrobial therapy according to susceptibility profile results. Treat for about two weeks following discharge. Job ID: [id number]
[2018-02-25] MEDS ORDERED: Vancomycin HCl 1.25 GM in Sodium Chloride 0.9% 250 ML 250 ML IVPB SCH (16:00)
[2018-02-25] MEDS: Vancomycin HCl 1.75 GM in Sodium Chloride 0.9% 500 ML IVPB SCH (16:43)
[2018-02-25] MEDS: Simvastatin 40 MG TAB PO SCH (20:29)
[2018-02-26] MEDS: Vancomycin HCl 1.75 GM in Sodium Chloride 0.9% 500 ML IVPB SCH (04:11)
[2018-02-26] MEDS: Acetaminophen/Codeine 30-300mg Tablet PO PRN (06:44)
[2018-02-26] MEDS: Cefepime 1 GM in Sodium Chloride 0.9% 100 ML IVPB SCH (07:10)
[2018-02-26 08:42] VITALS: TEMP 97.9
[2018-02-26] MEDS: Enoxaparin Sodium 40 MG/0.4 ML SYRINGE SC SCH (08:51)
[2018-02-26] MEDS: Gabapentin 300 MG CAP PO SCH (08:51)
[2018-02-26] MEDS: Metoprolol Tartrate 100 MG TAB PO SCH (08:51)
[2018-02-26 14:15] VITALS: BP 137/84
[2018-02-26] MEDS ORDERED: Linezolid 600 MG TAB PO SCH (21:00)
--- NOTE | 2018-02-27 08:53 | DIS ---
DATE OF ADMISSION: 02/21/2018 DATE OF DISCHARGE: 02/26/2018 DISCHARGE DIAGNOSES: Is as of the following; 1. Cellulitis of the right foot. 2. Right foot abscess. 3. Hypertension. 4. Dyslipidemia. 5. Peripheral neuropathy. HOSPITAL COURSE: The patient is a 62-year-old male who initially presented to the hospital for right leg swelling after he was walking his dog around 3:30 a.m. and got bit by copperhead. The patient stated that his leg started to swell the following day. He went to the ER and got some oral antibiotics. However, over the weekend when his foot got severe to the point that he had a lot of redness, warmth, erythema, and pain, he decided to come into the ER for further evaluation. The patient, at this time, underwent a lower extremity MRI, which indicated dorsal forefoot and mid forefoot cellulitis with associated soft tissue abscess at the dorsal aspect of the 5th metatarsophalangeal joint. The patient, at this time, was seen by Podiatry and underwent an incision and drainage of the right foot abscess. Cultures were taken. Also, Infectious Disease was consulted. Culture indicated Staph resistant to oxacillin MRSA and also anaerobic. The patient was initially on cefepime and vancomycin, which have been transitioned to Bactrim and rifampin. I did speak with Infectious Disease, who recommended 2 weeks course of antibiotics with Bactrim and also with rifampin. I have provided the patient with a prescription for CBC and BMP weekly until he is on these antibiotics. He will follow up with Dr. Carpenter and with Podiatry next week. The patient has been getting instructions for his dressing changes per Wound Care on his right foot. DISCHARGE MEDICATIONS: Are as of the following, he is going to be on; 1. Metoprolol 1 tab p.o. b.i.d. 2. Gabapentin 1 cap b.i.d. 3. Rifampin 300 mg b.i.d. for 2 weeks. 4. Bactrim DS 1 tab p.o. b.i.d. 5. Zocor 1 tab p.o. at bedtime. PHYSICAL EXAMINATION: VITAL SIGNS: Temperature 97.7, pulse 73, respiratory rate 18, saturation 98% on room air, blood pressure 128/69. GENERAL: He is awake, alert, and oriented x3. Does not appear in distress. CV: S1 and S2 present. No murmurs, rubs, or gallops. ABDOMEN: Soft and nontender. Bowel sounds are present x2. He does have his right foot, which is wrapped and is in a boot. Again, the patient will be discharged home. He will follow up with Surgery and also with primary care doctor, and I have told him to go for blood work any time next week and the following week while he is on antibiotics. He will go for blood work to the place, where he normally does and the results will be forwarded to Dr. Carpenter. Job ID: [id number]
== END 2018-02-26 14:27 | disposition home or self-care (01) | DRG 603 ==
LOC: ERS 11:43 → T4-B 13:33
PROVIDERS: ADMIT Internal Medicine; ATTEND Internal Medicine
PROC: 0Y9M0ZZ Drainage of Right Foot, Open Approach (ICD-10-PCS; principal; 2018-02-23)
DX: L03.115 Cellulitis of right lower limb (principal); L02.611 Cutaneous abscess of right foot; I10 Essential (primary) hypertension; E78.5 Hyperlipidemia, unspecified; G62.9 Polyneuropathy, unspecified; B95.8 Unspecified staphylococcus as the cause of diseases classified elsewhere; I73.9 Peripheral vascular disease, unspecified
CPT/HCPCS: 36415; 80048; 80053; 80202; 85025; 86140; 87040; 87070; 87077; 87186; 87205; 90471; 90715; 96365; J0692; J1100; J1650; J1885; J2001; J2250; J2270; J2405; J2543; J2704; J3010; J3370; J7050; S0020

== ENCOUNTER 2018-03-10 07:41 | Outpatient (CLI) | payer OTHER ==
--- NOTE | 2018-03-10 09:25 | CT ---
CT OF THE LUMBAR SPINE: Date: 03-10-18 Comparison: 08-27-16 History: Low back pain. Technique: Axial CT imaging at 2 mm intervals through the lumbar spine without contrast. Coronal and sagittal reformatted imaging obtained. FINDINGS: There is scattered atherosclerotic calcification of the abdominal aorta and its branches, not well ch aracterized on this examination. Retroperitoneal structures demonstrate no acute findings. There is no anterolisthesis or retrolisthesis noted within the lumbar spine. Bilateral laminectomy changes are present at the L3 and L4 levels, new when compared to the prior exa mination. There is an age indeterminate fracture with associated callus formation involving the L3 spinus proce ss, new when compared to the 08-27-16 examination. T12-L1: No osseous cause of significant central canal or neural foraminal stenosis. L1-2: No osseous cause of significant central canal or neural foraminal stenosis. L2-3: Probable mild disc bulge. No osseous cause of significant central canal or neural foraminal darinel nosis. L3-4: Mild disc bulge. Bilateral moderate facet hypertrophy, right greater than left. No osseous caus e of significant central canal stenosis. There is probable bilateral neural foraminal stenosis of mod erate severity, left greater than right. There is soft tissue density posterior to the thecal sac associated with prior surgery, of uncertain etiology/significance. L4-5: Soft tissue density is seen posterior to the thecal sac at the post-operative site. There is bi lateral facet hypertrophy. There is moderate bilateral neural foraminal stenosis suspected. No osseou s cause of significant central canal stenosis. L5-S1: Bilateral facet hypertrophy, right greater than left. At least mild bilateral neural foraminal stenosis. No osseous cause of significant central canal stenosis. Of note, evaluation for central canal and/or neural foraminal stenosis is limited on CT examination. MRI with and without contrast suggests that if symptoms persist. No suspicious lytic or blastic bone lesion. IMPRESSION: Post-operative and degenerative changes noted within the lumbar spine as detailed above. There is an age indeterminate subacute appearing fracture with callus formation involving the L3 spinus process. POS: [facility]
== END 2018-03-10 07:42 | disposition home or self-care (01) ==
LOC: SCSCT 07:41
PROVIDERS: ATTEND Neurological Surgery
DX: M47.26 Other spondylosis with radiculopathy, lumbar region (principal); M48.061 Spinal stenosis, lumbar region without neurogenic claudication; Z98.890 Other specified postprocedural states
CPT/HCPCS: 72131

== ENCOUNTER 2018-10-18 13:06 | Outpatient (CLI) | payer OTHER ==
[~2018-10-18 13:06] MED LIST changes: -Bupivacaine HCl 0.5%/Epinephrine 1:200,000/PF 30 ml Vial ONE; -CEFAZOLIN/Water 2 GM/20 ML SYRINGE ONE; -Cephalexin 250 MG CAP PO SCH; -Dexamethasone 20 MG/5 ML VIAL ONE; -Fentanyl 100 MCG/2 ML VIAL ONE; +Gadobenate Dimeglumine 529 MG/1 ML (20ML VIAL) ONE; -Glycopyrrolate 0.2 MG/ML 5 ML SYRINGE ONE; -HYDROcodone/Acetaminophen 5/325 mg Tablet ONE; -Ketorolac Tromethamine 30 MG/ML VIAL ONE; -Lidocaine 1% PF 5 ML VIAL ONE; -Ondansetron HCl/PF 4 MG/2 ML Vial ONE; -PHENYLEPHRINE-NS 100 MCG/ML 10 ML SYRINGE ONE; -PROPOFOL 200 MG/20 ML VIAL ONE; -Thrombin 5000 UNITS/5 ML VIAL ONE; -Vecuronium 10 MG VIAL ONE
--- NOTE | 2018-10-18 17:03 | MRI ---
MRI LUMBAR SPINE WITH AND WITHOUT IV CONTRAST: HISTORY: Lumbar radiculopathy. COMPARISON: CT lumbar spine from 03/10/2019. MRI lumbar spine from 08/26/2017. FINDINGS: There is a subcentimeter low T1 signal intensity lesion within the medial aspect mid portion left kid favian, likely representing a cyst. The remainder of the retroperitoneal structures demonstrate a karen l MRI appearance. The conus medullaris is normal in appearance and terminates at the L1-L2 level. There is generalized narrowing of the central spinal canal, which is on a congenital basis, related t o shortened pedicles. L1-L2: There is no disk bulge or disk herniation. No significant central canal or neural foraminal narrowing is present. L2-L3: There is a mild broad-based disk bulge and posterior osteophyte formation, which is overall s imilar to the prior exam, again resulting in mild bilateral neural foraminal narrowing. There is no high-grade narrowing of the central spinal canal. L3-L4: There is a laminectomy defect seen posteriorly with enhancement seen posterior to the defect likely due to scarring. There is a mild disk osteophyte complex identified. There is mild narrowing of the central spinal canal. Facet degenerative changes are present at this level. Mild bilateral neural foraminal narrowing is seen. The degree of neural foraminal narrowing is unchanged from the p rior exam. L4-L5: There is evidence of a laminectomy defect at this level. There is enhancing soft tissue seen posterior to the level of the thecal sac, in the soft tissues, likely attributable to scarring. Mod erate bilateral neural foraminal narrowing is again present. Facet degenerative changes are present at this level. There is metallic susceptibility artifact, just to the left of midline, posterior to the L4 vertebral body likely due to postoperative changes. L5-S1: There is mild broad-based disk bulge, which does not result in displacement of the traversing S1 nerve roots. Mild bilateral neural foraminal narrowing is again present. IMPRESSION: 1. Degenerative and postoperative changes of the lumbar spine, as described above. 2. The degenerative changes are overall stable when compared to the prior study, with interval post surgical changes related to laminectomy defects at the L3-L4 and L4-L5 levels, with enhancement poste rior to the thecal sac at these levels, suggesting scarring. The scarring does encroach on the poste rolateral aspect of the thecal sac, at the L4-L5 level. 3. No fluid collection is seen. POS: [facility]
== END 2018-10-18 13:07 | disposition home or self-care (01) ==
LOC: SCSMRI 13:06
PROVIDERS: ATTEND Neurological Surgery
DX: M47.26 Other spondylosis with radiculopathy, lumbar region (principal); Z98.890 Other specified postprocedural states
CPT/HCPCS: 72158; 82565; A9577